=== PATIENT | female | born 1945 ===

== ENCOUNTER 2017-11-26 12:23 | Emergency (ER) | payer MEDICARE, MEDICAID ==
[2017-11-26 12:24] VITALS: BMI 29.2
[2017-11-26 12:28] VITALS: TEMP 98.2
[2017-11-26] MEDS ORDERED: Albuterol-Ipratrop 3 mg / 0.5 (3 ml) UD IH STA (13:57)
[2017-11-26 14:23] LABS: BASO # 0.1 K/uL (0.0-0.2); EOS # 0.2 K/uL (0.0-0.7); EOS % 3.1 % (0.0-4.0); HEMOGLOBIN 11.9 g/dL (11.0-16.0); LYMPH # 2.4 K/uL (1.0-4.3); LYMPH % 33.3 % (20.0-40.0); MEAN CORPUSCULAR HEMOGLOBIN 29.1 pg (27.0-31.0); MEAN CORPUSCULAR HGB CONC 32.7 g/dL (33.0-37.0); MEAN PLATELET VOLUME 7.9 fL (7.2-11.7); MONO # 0.5 K/uL (0.0-0.8); MONO % 7.1 % (0.0-10.0); NEUT # 3.9 K/uL (1.8-7.0); NEUT % 55.5 % (50.0-75.0); RBC 4.08 Mil/uL (3.80-5.20); RED CELL DISTRIBUTION WIDTH 16.2 % (11.5-14.5); WHITE BLOOD COUNT 7.1 K/uL (4.8-10.8)
[2017-11-26 14:35] LABS: ALB/GLOB RATIO 1.3 (1.0-2.1); ALBUMIN 4.2 g/dL (3.5-5.0); ALT/SGPT 42 U/L (9-52); AST/SGOT 30 U/L (14-36); BLOOD UREA NITROGEN 13 mg/dL (7-17); CALCIUM 9.1 mg/dl (8.6-10.4); GFR AFRICAN-AMERICAN > 60; GFR NON-AFRICAN AMERICAN > 60
[2017-11-26] MEDS ORDERED: Albuterol-Ipratrop 3 mg / 0.5 (3 ml) UD ONE (14:47)
--- NOTE | 2017-11-26 15:11 | C.PDOC ---
Time Seen by Provider: 11/26/17 13:12 Chief Complaint (Nursing): Cough, Cold, Congestion History Per: Patient Onset/Duration Of Symptoms: Days (2) Current Symptoms Are (Timing): Still Present Associated Symptoms: Fever (subjective), Sore Throat, Cough, Nasal Congestion Severity: Moderate Recent travel outside of the [place]: No Additional History Per: Prior Records Past Medical History Reviewed: Historical Data, Nursing Documentation, Vital Signs Vital Signs: Last Vital Signs Temp 98.2 F 11/26/17 12:25 Pulse 80 11/26/17 12:25 Resp 18 11/26/17 12:25 BP 150/96 H 11/26/17 12:25 Pulse Ox 99 11/26/17 12:25 - Medical History PMH: Asthma (never been hospitalized), HTN, Hypercholesterolemia, Hypothyroidism , Kidney Stones (2000), Osteoporosis, Chronic Kidney Disease, Rheumatoid Arthritis Surgical History: Cholecystectomy (1998) - CO-Value Procedures CORONAR ARTERIOGR-2 CATH (03/11/14) LT HEART ANGIOCARDIOGRAM (03/11/14) RT/LEFT HEART CARD CATH (03/11/14) Family History: States: Unknown Family Hx - Social History Hx Tobacco Use: No Hx Alcohol Use: No Hx Substance Use: No - Immunization History Hx Tetanus Toxoid Vaccination: No Hx Influenza Vaccination: No Hx Pneumococcal Vaccination: No Review Of Systems Except As Marked, All Systems Reviewed And Found Negative. Cardiovascular: Negative for: Chest Pain Respiratory: Positive for: Cough, Wheezing. Negative for: Hemoptysis Gastrointestinal: Negative for: Vomiting Genitourinary: Negative for: Dysuria Musculoskeletal: Negative for: Neck Pain, Back Pain Skin: Negative for: Rash Neurological: Negative for: Weakness, Numbness ED Course And Treatment - Laboratory Results Result Diagrams: 11/26/17 14:19 11/26/17 14:19 Lab Interpretation: No Acute Changes O2 Sat by Pulse Oximetry: 99 Pulse Ox Interpretation: Normal - Radiology CXR: Interpreted by Me, Viewed By Me CXR Interpretation: Yes: No Acute Disease Progress Note: Pt feels much better and wants to go home. No SOB. Lungs mostly clear. Reassessment Condition: Improved Progress - Interventions Interventions:: Observation - Medications Administered Intravenous: Corticosteroid - Data Reviewed Data Reviewed: Lab, Diagnostic imaging, Old records - Patient Status Patient status: Mostly improved - Continuity of Care Discussed patient case with:: Patient, ED Nurse - Patient Plan Patient Plan: Discharge, F/U with PCP, Continue present meds Disposition Counseled Patient/Family Regarding: Studies Performed, Diagnosis, Need For Followup, Rx Given - Disposition Referrals: Charlie Hendricks MD [Staff Provider] - Disposition: HOME/ ROUTINE Disposition Time: 15:13 Condition: IMPROVED Additional Instructions: Follow up with your doctor this week. Return to the ER if you develop shortness of breath, high fever, lethargy, worsening of symptoms or if you have any other concerns. Prescriptions: Moxifloxacin [Avelox] 400 mg PO DAILY #5 tab Pantoprazole Sodium [Protonix] 40 mg PO DAILY #14 ect predniSONE [predniSONE Tab] 2 tab PO DAILY #10 tab Instructions: Acute Bronchitis (ED) Forms: [facility] (Czech) Print Language: SAMI - Clinical Impression Clinical Impression: Upper respiratory infection, Bronchospasm
[2017-11-26 15:30] VITALS: BP 129/72; PULSE 89; RESP 19; O2SAT 98
--- NOTE | 2017-11-26 15:36 | RAD ---
HISTORY: Cough, SOB, wheezing COMPARISON: No prior. TECHNIQUE: Chest PA and lateral FINDINGS: LUNGS: No consolidation PLEURA: No significant pleural effusion identified. No pneumothorax apparent. CARDIOVASCULAR: Mild cardiomegaly. Probable mild central pulmonary venous congestion OSSEOUS STRUCTURES: No significant abnormalities. VISUALIZED UPPER ABDOMEN: Normal. OTHER FINDINGS: Left axillary surgical clips cholecystectomy clips and more posterior clips on lateral view at thoracolumbar junction IMPRESSION: Mild cardiomegaly with probable mild central pulmonary venous congestion no pleural effusion appreciated Surgical changes - multiple sites as above
== END 2017-11-26 15:30 | disposition home or self-care (01) ==
LOC: C.ER 12:23
DX: J06.9 Acute upper respiratory infection, unspecified (principal); J98.01 Acute bronchospasm
CPT/HCPCS: 71046; 80053; 83880; 84484; 85025; 87804; 96374; 99283; J2930